=== PATIENT | male | born 1980 | race Caucasian/White ===

== ENCOUNTER → 2016-08-30 | Day surgery (SDC) | payer OTHER ==
[~2016-08-30] VITALS: Ht 190.5 cm; Wt 90.4 kg
== END | disposition disaster alternative care site (69) ==
LOC: GPOC 08-26 14:00 → GEND 07:13 → GPOC 14:00
PROC: 0DJD8ZZ Inspection of Lower Intestinal Tract, Via Natural or Artificial Opening Endoscopic (ICD-10-PCS; principal; 2016-08-30)
DX: Z12.11 Encounter for screening for malignant neoplasm of colon (principal); Z86.010 Personal history of colon polyps; Z98.890 Other specified postprocedural states
CPT/HCPCS: J7030